=== PATIENT | male | born 1945 | race Caucasian/White ===

== ENCOUNTER 2024-01-22 07:30 | Day surgery (SDC) | payer BC ==
[2024-01-22] VITALS (12 sets, daily range): BP systolic 112–131; BP diastolic 51–117; PULSE 62–71; RESP 12–18; O2SAT 95–99
[~2024-01-22] VITALS: Ht 170.2 cm; Wt 70.8 kg
[2024-01-22] MEDS ORDERED: nitroGLYCERIN 0.4mg SUBLingual tab SL PRN (07:55)
[2024-01-22] MEDS ORDERED: DEXTROSE 15 GM of carb/4 tabs (each vial/BOTTLE has 4 tablets) PO PRN ×2 (08:00)
[2024-01-22] MEDS ORDERED: glucagon, human recombinant 1mg kit SUBCUT PRN (08:00)
[2024-01-22] MEDS ORDERED: dextrose 50%-water 50ml dispensing syringe IV PRN ×2 (08:00)
[2024-01-22] MEDS ORDERED: insulin Lispro (HumaLOG) vial - multi-dose SQ SCH (08:00)
[2024-01-22] MEDS ORDERED: MESSAGE TO PHARMACY PO ONE (08:00)
[2024-01-22] MEDS ORDERED: FLUT1BLS11 INH (08:07)
[2024-01-22] MEDS ORDERED: ESCI-8 PO (08:07)
[2024-01-22] MEDS ORDERED: METF-1203 PO (08:07)
[2024-01-22] MEDS ORDERED: SIMV-45 PO (08:07)
[2024-01-22] MEDS ORDERED: SULF500T59 PO (08:07)
[2024-01-22] MEDS ORDERED: BIMA2.5D EACHEYE (08:07)
[2024-01-22 08:38] LABS: BASOPHILS # (AUTO) 0.1 X10'3 (0-0.2); BASOPHILS % (AUTO) 1.3 % (0-1); EOSINOPHILS # (AUTO) 0.2 X10'3 (0-0.9); EOSINOPHILS % (AUTO) 2.9 % (0-6); HEMOGLOBIN 13.1 g/dl (14.0-17.9); LYMPHOCYTES # (AUTO) 1.2 X10'3 (1.1-4.8); LYMPHOCYTES % (AUTO) 22.4 % (21-51); MEAN CORPUSCULAR HEMOGLOBIN 36.6 PG (27.0-31.0); MEAN CORPUSCULAR HGB CONC 34.5 g/dL (33.0-36.5); MEAN CORPUSCULAR VOLUME 106.2 FL (78-98); MEAN PLATELET VOLUME 8.7 FL (7.4-10.4); MONOCYTES # (AUTO) 0.6 X10'3 (0-0.9); MONOCYTES % (AUTO) 10.4 % (2-12); NEUTROPHILS # (AUTO) 3.5 X10'3 (1.8-7.7); PLATELET COUNT 145 X10'3 (140-440); RED BLOOD COUNT 3.58 X10'6 (4.70-6.10); RED CELL DISTRIBUTION WIDTH 12.8 % (11.5-14.5); WHITE BLOOD COUNT 5.5 X10'3 (4.5-11.0)
[2024-01-22 08:49] LABS: ALBUMIN 3.2 G/DL (3.4-5.0); ANION GAP 8 (8-16); BLOOD UREA NITROGEN 12 MG/DL (7-18); BUN/CREATININE RATIO 14.1 (10.0-20.0); CHLORIDE 103 MMOL/L (99-107); CREATININE 0.85 MG/DL (0.60-1.10); GLUCOSE 151 MG/DL (70-104); POTASSIUM 3.4 MMOL/L (3.5-5.1); SODIUM 138 MMOL/L (135-145); TOTAL CARBON DIOXIDE 27.3 MMOL/L (24-32); eCRCL 66 ML/MIN; eGFR 87 ML/MIN
[2024-01-22 08:51] LABS: APTT 30 SECONDS (22-32); PROTHROMBIN TIME 10.6 SECONDS (9.0-12.0)
[2024-01-22] MEDS: diphenhydrAMINE 25mg capsule PO PRN (09:04)
[2024-01-22] MEDS: LORazepam 0.5 MG tablet PO PRN (09:04)
[2024-01-22] MEDS: normal saline 1,000 ML IV SCH (09:05)
[2024-01-22] MEDS: potassium Cl 20 mEq SR tablet PO STA (09:18)
[2024-01-22] MEDS ORDERED: LIDOcaine 1% 30ml preserv. free vial ONE (09:20)
[2024-01-22] MEDS ORDERED: iohexol 350MG/ML 100ml bottle IV ONE (09:20)
[2024-01-22] MEDS ORDERED: iohexol 350 MG/ML 50ML vial IV ONE (09:20)
[2024-01-22] MEDS ORDERED: midazolam 1 mg/ML 2ml injection ONE (09:20)
[2024-01-22] MEDS ORDERED: fentaNYL/PF 50MCG/1 ML 2ML syringe ONE (09:20)
[2024-01-22 10:29] LABS: ISTAT HGB ART 12.2 g/dl (14.0-17.9); ISTAT Hct ART 36 %PCV (42-52); ISTAT O2 SATURATION ARTERIAL 88 % (95-98); ISTAT SOURCE ART
[2024-01-22 10:44] LABS: ISTAT HGB MIX 12.2 g/dl (14.0-17.9); ISTAT Hct MIX 36 %PCV (42-52); ISTAT O2 SATURATION MIX VENOUS 66 % (60-80); ISTAT SOURCE VEN
[2024-01-22] MEDS ORDERED: normal saline 1000ml 1,000 ML IV SCH (11:25)
[2024-01-22] MEDS ORDERED: HYDROcodone/acetaminophen 5mg/325mg tablet PO PRN (11:25)
[2024-01-22] MEDS ORDERED: proCHLORperazine 10 MG/2 ml inj IV PRN (11:25)
[2024-01-22] MEDS ORDERED: ondansetron/PF 4mg/2ml inj IV PRN (11:25)
[2024-01-22] MEDS ORDERED: OXAZEpam 15mg capsule PO PRN (11:25)
[2024-01-22] MEDS: HYDROcodone/acetaminophen 10/325mg tab PO PRN (11:45)
[2024-01-22] MEDS ORDERED: insulin glargine (Lantus) pen - multi-dose SQ SCH (21:00)
== END 2024-01-22 17:00 | disposition home or self-care (01) ==
LOC: SSTAY O 07:30
PROVIDERS: ATTEND Internal Medicine Cardiovascular Disease
DX: I34.0 Nonrheumatic mitral (valve) insufficiency (principal); I25.10 Atherosclerotic heart disease of native coronary artery without angina pectoris; J44.9 Chronic obstructive pulmonary disease, unspecified; E11.9 Type 2 diabetes mellitus without complications; I34.1 Nonrheumatic mitral (valve) prolapse; F32.9 Major depressive disorder, single episode, unspecified; Z79.84 Long term (current) use of oral hypoglycemic drugs; Z79.899 Other long term (current) drug therapy
CPT/HCPCS: 36415; 71046; 80048; 82803; 83036; 85014; 85025; 85610; 85730; 93005; 93460; 99152; 99153; J1644; J1815; J2250; J3010; J3490; J7030; Q0163; Q9967; A6258; C1751; C1760